=== PATIENT | female | born 1970 | race Caucasian/White ===

== ENCOUNTER 2025-05-13 16:25 | Emergency (ER) | payer OTHER, SELFPAY ==
--- NOTE | ~2025-05-13 | CT_ITS ---
EXAMINATION: CT cervical spine wo con DATE: 05/13/2025 21:46 INDICATION: frequent falls TECHNIQUE: Computed tomography (CT) of the cervical spine was performed without intravenous contrast. Automated exposure control and iterative reconstruction technique were employed. The dose-length pro duct was 622.78 mGy-cm. COMPARISON: None. FINDINGS: Vertebral Body Alignment: Minimal anterolisthesis at C4-5. Reversed lordosis as can occur with positi oning or muscle spasm. Craniocervical and atlantoaxial alignment: Mild degenerative change. Alignment intact. Osseous structures/fracture: Focal 8 mm ovoid lytic lesion in the left posterior aspect of the T4 dell tebral body. No evidence of acute fracture. Cervical soft tissues: The paraspinal soft tissues planes are maintained. Degenerative changes: Mild degenerative changes, without severe neural foraminal or central canal franki rowing. IMPRESSION: No acute fracture or traumatic malalignment in the cervical spine. Focal 8 mm lytic lesion in T4, correlate for history of multiple myeloma or metastatic disease. Consi shital bone scanning. Reviewed, dictated and finalized at location K. IMPRESSION: No acute fracture or traumatic malalignment in the cervical spine. Focal 8 mm lytic lesion in T4, correlate for history of multiple myeloma or met astatic disease. Consider bone scanning.
--- NOTE | ~2025-05-13 | CT_ITS ---
EXAMINATION: CT brain wo con DATE: 05/13/2025 21:47 INDICATION: frequent falls . TECHNIQUE: Computed tomography (CT) of the head was performed without intravenous contrast. The mA wa s adjusted according to patient size. Iterative reconstruction technique was employed. The dose-lengt h product was 622.78 mGy-cm. COMPARISON: None. FINDINGS: No acute intracranial hemorrhage or extra-axial fluid collection. No hydrocephalus, mass, or herniation. No acute ischemic infarct. Unremarkable dural venous sinus attenuation. No acute osseous abnormality. Minimal right mastoid fluid, the remaining aerated spaces are clear. IMPRESSION: No acute intracranial process. Reviewed, dictated and finalized at location K.
[2025-05-13 16:27] VITALS: BP 110/88; PULSE 113; RESP 18; TEMP 36.6; O2SAT 96
[2025-05-13 20:14] VITALS: BP 96/65; PULSE 99; RESP 16; TEMP 36.9; O2SAT 95
[2025-05-13 22:04] LABS: Hematocrit 41.3 % (37.0-47.0); Hemoglobin 12.8 g/dL (12.0-15.0); Immature Granulocyte Percent A 0.4 % (0-0.5); Lymphocytes Absolute Auto 1.29 K/mm3 (0.9-3.2); Mean Corpuscular HGB Conc 31.0 g/dl (32-36); Mean Corpuscular Hemoglobin 29.1 pg (26-34); Mean Corpuscular Volume 93.9 fl (80-100); Nucleated Red Blood Cells Absolute Auto 0.000 K/mm3 (0.0-0.012); Nucleated Red Blood Cells Perc 0.0 % (0.0-0.2); Platelet Count Result 163 k/mm3 (150-375); Red Blood Count 4.40 M/mm3 (4.2-5.4); White Blood Count 6.9 K/mm3 (4.5-10.0)
[2025-05-13 22:24] LABS: Alanine Aminotransferase 26 U/L (6-35); Albumin Level 3.9 g/dL (3.5-5.1); Alkaline Phosphatase 94 U/L (38-126); Anion Gap 6 mmol/L (4-12); Aspartate Amino Transferase 51 U/L (14-36); Bilirubin,Total 0.6 mg/dL (0.2-1.3); Blood Urea Nitrogen 8 mg/dL (7-17); Calcium 9.0 mg/dL (8.4-10.2); Carbon Dioxide 30 mmol/L (22-30); Chloride 101 mmol/L (98-107); Estimated CRCL calculation 68 ml/min; Estimated Glomerular Filt Rate > 60; Glucose 93 mg/dL (65-110); Magnesium 2.2 mg/dL (1.6-2.3); Potassium 4.2 mmol/L (3.4-5.0); Sodium 137 mmol/L (137-145); Total Protein 7.1 g/dL (6.3-8.2)
--- OUTSIDE RECORDS SUMMARY | 2025-05-13 23:22 | XMS_ITS | Patient Health Record ---
Author Organization Formerly [facility] Address [address] [place] [address] Care Team Providers Care Electromechanical Equipment Assembler Name Role Phone Jono Long Primary Care Provider Darryn Pardo Unavailable [phone] Smooth Diamond Unavailable Khari Mo Unavailable [phone] Allergies No Known Allergies Results Component Value Reference Range Notes Glucose Fingerstick Reviewed date:05/12/2025 10:10:50 AM Interpretation: Performing Lab: Notes/Report: Result 102 70 - 120 mg/dL Breathalyzer Reviewed date:05/11/2025 11:12:52 AM Interpretation: Performing Lab: Notes/Report: MELVIN 0.000 14 Panel Urine Drug Screen Reviewed date:05/11/2025 11:14:42 AM Interpretation: Performing Lab: Notes/Report: THC pos SHAYY neg MOP (OPI) neg AMP neg MET neg BAR neg BZO neg MDMA neg MTD neg OXY neg PCP neg BUP pos TCA neg FTY neg 14 Panel Urine Drug Screen Reviewed date:04/28/2025 01:45:22 PM Interpretation: Performing Lab: Notes/Report: THC POS SHAYY neg MOP (OPI) neg AMP neg MET neg BAR neg BZO neg MDMA neg MTD neg OXY POS PCP neg BUP neg TCA neg FTY neg Reason For Referral No Information Medications Medication SIG (Take, Route, Frequency, Duration) Notes Start Date End Date Status Memantine HCl 10 MG 1 tablet Orally Once a day Active OLANZapine 10 MG 1 tablet Orally Once a day Active Eliquis 5 MG twice a day Orally Active Ondansetron HCl 4 MG 1 tablet Orally every 6 hours As needed for nausea 04/28/2025 Active Nuedexta 20-10 MG 1 capsule Orally daily Active Pregabalin 150 MG 1 capsule Orally 3 t imes a day Active Rosuvastatin Calcium 10 MG 1 tablet Oral ly Once a day Active Horatio Carbonate ER 450 MG 1 tablet at bedtime Orally Once a day Active Breo Ellipta 200-25 MCG/ACT 1 puff Inhal ation Once a day Active Baclofen 10 MG 1 tablet as needed Orally every 6 hours As needed for cramping 04/28/2025 Active Multi Vitamin - 1 tablet Orally Once a day; Duration: 30 days 05/11/2025 Active Nicotine Polacrilex 4 MG 1 lozenge as ne eded Mouth/Throat every 8 hrs 04/28/2025 Active Meclizine HCl 12.5 MG 1 tablet as needed Orally every 12 hrs 05/12/2025 Active Melatonin 5 MG 1 tablet at bedtime as needed Orally Once a day; Duration: 30 days 05/11/2025 Active traZODone HCl 100 MG 1 tablet at bedtime Orally Once a day 04/28/2025 Active hydrOXYzine Pamoate 25 MG 1-2 capsules O rally every 4 hours as needed for anxiety, agitation, or inability to sleep. Do not give within 4 hours of diphenhydramine.; Duration: 30 days 05/11/2025 Active Buprenorphine HCl-Naloxone HCl 4-1 MG 1 film under the tongue and allow to dissolve Sublingual 3 times a day 05/04/2025 Active Social History Tobacco Use: Social History Observation Description Date Details (start date - stop date) Never Smoker NA - NA PRAPARE Question Answer Notes Date Completed/Updated: 05/11/2025 What is your current housing situation? I have h ousing Are you worried about losing your housing? No What is the highest level of school that you have finished? 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 Check all that apply I do not have problems meeting my needs Has lack of transportation k ept you from medical appointments, meetings, work or from getting things needed for daily living? No How often do you see or talk to people that you care about and feel close to? (For example: talking to friends on the phone, visiting friends or family, going to latter day or club meetings) More than 5 times a week In the past year have you sp ent more than 2 nights in a row in a senior living, long-term, usp center, or juvenile correctional facility? No Are you a refugee? I choose not to answer this q uestion What country are you from? I choose not to answe r this question Do you feel physically and e motionally safe where you currently live? Yes In the past year, have you b een afraid of your partner or ex-partner? No PRAPARE Score: 3 Enabling Services Provided? Yes Please specify Case Management Asse ssment First Visit Tobacco Control (Standard) Question Answer Notes Tobacco use: Nonsmoker Problems Problem Type SNOMED Code ICD Code Onset Dates Problem Status W/U Status Risk Notes Problem Overweight (402034895) Over weight (E66.3) Active confirmed Problem Obesity (408795414) Obesity (BMI 30-39.9) (E66.9) Active confirmed Problem Fall (3759492) Fall (W19.XXXA) Active confirmed Problem Opioid use disorder (0542289138) Opioid use disorder (F11.99) Active confirmed Problem Tobacco user (206889520) Nicotine dependence with current use (F17.200) Active confirmed Problem Benign paroxysmal positional vertigo (854417916) Benign positional vertigo, bilateral (H81.13) Active confirmed Vital Signs Heart Rate 72 /min 05/12/2025 Layin/68 Standin/74 for 05/12/25 visit Temperature 98.7 degrees Fahrenheit 05/12/2025 Layi n/68 Standin/74 for 05/12/25 visit Respiratory Rate 18 /min 05/12/2025 Layin /68 Standin/74 for 05/12/25 visit Blood pressure diastolic 68 mm Hg 05/12/2025 Lay in/68 Standin/74 for 05/12/25 visit Oximetry 93 % 05/12/2025 Layin/68 Standin/74 for 05/12/25 visit Height 65 in 05/12/2025 Layin/68 Standin/74 for 05/12/25 visit Blood pressure systolic 120 mm Hg 05/12/2025 Layi n/68 Standin/74 for 05/12/25 visit Weight 201.0 lbs 05/12/2025 Layin/68 Standin/74 for 05/12/25 visit BMI 33.44 kg/m2 05/12/2025 Layin/68 Standin/74 for 05/12/25 visit Encounters Encounter Location Date Provider Diagnosis [facility] [address] [place] [address] 05/11/2025 Smooth Diamond [address] [place] [address] 04/28/2025 Jenia Heavens Opioid use disorder F11.99 ; Obesity (BMI 30-39.9) E66.9 and Nicotine dependence with current use F17.200 [address] [place] [address] 05/11/2025 Jenia Heavens Opioid use disorder F11.99 ; Obesity (BMI 30-39.9) E66.9 and Routine general medical examination at a health care facility Z00.00 [address] [place] [address] 05/12/2025 Khari Bauder Fall W19.XXXA ; Benign positional vertigo, bilateral H81.13 and Over weight E66.3 [address] [place] [address] 05/02/2025 Jenia Heavens Opioid use disorder F11.99 [address] [place] [address] 05/04/2025 Jenia Heavens Opioid use disorder F11.99 Assessments Encounter Date Diagnosis (ICD Code) Assessment Notes Treatment Notes Treatment Clinical Notes Section Notes 04/28/2025 Obesity (BMI 30-39.9) (ICD-10 - E66.9) 04/28/2025 Opioid use disorder (ICD-10 - F11.99) Client presented as new MAT client and thought she was being admitted to [facility], CLient unable to admit to [facility] today> VIsit type was changed to AWM Medication instructions given from 14:30pm to 15:10 pm Buprenorphine induction + Comfort medications Client was given verbal and written instructions on buprenorphine/nalox one as follows: Dose is _4 mg _mg placed under tongue and allow to dissolve. Do not swallow medication, as that makes it ineffective. Do not eat or drink until the film completely dissolves and do not brush teeth for at least one hour after the medication has dissolved. Provided SOWS assessment to assist in dosing decisions. Instructed client that the goal for the total dose is to be withdrawal and craving free. Home dose will be ___4 mg up to 4 times a day, based on improvement in symptoms. Do not stop taking the medication abruptly, as this may cause withdrawal symptoms. Call the office if you experience side effects that are serious and do not go away, such as headache, stomach pain, constipation, sleep disturbances, mouth irritation, blurred vision, or back pain. Store the medication at room temperature in a secure area so no one else can use it accidentally or on purpose. Know that your body's tolerance lowers if you have not used the substance even for a few days. The amount you once used will be too much for your body to handle and may cause overdose or . Keep nasal Narcan (naloxone) nearby and make sure a friend, family member, or other support person knows how to use Narcan in the event of an overdose. Do your best to stay hydrated prior to and during the withdrawal process, drinking a minimum of eight 8-ounce glasses of water per day, sipping water, not gulping. Use ice chips or freezer pops to help with hydration. The client was given verbal and written instructions on all comfort medications ordered as follows: Baclofen 10mg, take one tablet by mouth every 6 hours as needed for muscle cramping. Possible side effects include dizziness, weakness, confusion, headache, nausea, constipation, sleep difficulties, tiredness, and frequent urination. Contact the office if you experience side effects that are severe or do not go away. Zofran/ Ondansetron can be taken with or without food. . Follow your doctor's dosing instructions very carefully. Take the ondansetron regular tablet with a full glass of water. Get emergency medical help if you have signs of an allergic reaction: rash, hives; fever, chills, difficult breathing; swelling of your face, lips, tongue, or throat. Call your doctor at once if you have: severe constipation, stomachpain, or bloating; Remember, keep this and all other medicines out of the reach of children, never share your medicines with others, and use this medication only for the indication prescribed. Trazodone 100 mg, take one tablet by mouth at bedtime as needed for 10 days. Use is for difficulty sleeping. Be sure to allow 7-8 hours of sleep. Common side effects can be drowsiness, lightheadedness, nausea, diarrhea, constipation, nightmares, muscle pain, decreased sexual drive, stuffy nose, and tired/red/itchy eyes. All comfort medications can cause drowsiness. Do not drive or operate heavy machinery until you know how the medication affects you. Have a flatbed company driver until then. 05/02/2025 Opioid use disorder (ICD-10 - F11.99) 05/04/2025 Opioid use disorder (ICD-10 - F11.99) 05/11/2025 Obesity (BMI 30-39.9) (ICD-10 - E66.9) 05/11/2025 Opioid use disorder (ICD-10 - F11.99) 05/12/2025 Fall (ICD-10 - W19.XXXA) Educated the patient on taking it easy with exercising and overexerting herself while on the unit and at home. Educated her on changing positions slowly and to take her time. Educated her on seeking help if she loses concsiousness or hits her head. 05/12/2025 Benign positional vertigo, bilateral (ICD-10 - H81.13) Educated her on taking meclizine PRN for her dizziness and to not take it at the same time as hydroxyzine. Educated her that the medication can make her tired and to rest if she is feeling fatigued. Educated the patient on taking it easy with exercising and overexerting herself while on the unit and at home. Educated her on changing positions slowly and to take her time. Educated her on seeking help if she loses concsiousness or hits her head. 05/12/2025 Over weight (ICD-10 - E66.3) 05/11/2025 Routine general medical examination at a health care facility (ICD-10 - Z00.00) SUPR Programs: Based on an evaluation of [facility] Patient Placement Criteria, a recommendation for placement in Level III treatment is indicated and approved. Confirmation of diagnosis is documented in the initial treatment plan.Admit to the Mental Health/Crisis Residential Unit and initiate standing/protocol orders: The following PRN medications may be self-administered by patients under the supervision of approved staff or administered by nursing staff: Ibuprofen 200mg, 2-4 tablets by mouth (with food) every 6 hours as needed for pain (unless on lithium). (NOTE: Ibuprofen and acetaminophen may be given together, but alternating is recommended for continuous pain relief. Guaifenesin 400 mg, 1 tablet by mouth every four hours as needed for cough and chest congestion (take with large glass of water). Loratadine 10 mg, 1 tablet by mouth daily as needed for allergies, watery itchy eyes, or sinus drainage. Throat Lozenges, up to 4 tablets by mouth every three to four hours as needed for sore throat. Antacid tablets, 1-2 tablets by mouth every one to two hours as needed for indigestion or heart burn. If the client prefers liquid, could use: Liquid Antacid : 1 ounce by mouth up to four times daily as needed for indigestion or heartburn Omeprazole 20mg, 1 capsule by mouth once daily for 14 days for frequent heartburn (frequent heartburn is more than 2 episodes per week). Do not exceed 14 days. Do not give to client already taking a proton-pump inhibitor: esomeprazole (Nexium), lansoprazole (Prevacid), pantoprazole (Protonix), rabeprazole (Aciphex), dexlansoprazole (Dexilant) Zofran ODT disintegrating (under the tongue) 4 mg, 1-2 tablets every 8 hours as needed for nausea/vomiting. Milk of Magnesia (MOM): 1 ounce (30 milliliters) by mouth every day as needed for constipation. OR Miralax: Stir and fully dissolve 17 grams (1 packet or 1 capful to measured line) in any 4 to 8 ounces of beverage then drink once daily for constipation. Do not use for more than 7 days. OR Docusate 100 mg, 1 capsule twice daily as needed for constipation Hydrocortisone 1% Cream, apply topically (to the skin) to the affected area up to three times daily as needed for itching or inflammation (avoid eyes and genitals). 2% Antifungal Cream, apply topically (to the skin) as directed as needed to affected areas for athlete's foot or jock itch. Triple Antibiotic Ointment, apply topically (to the skin) up to three times daily as needed for minor cuts and scrapes. Carmex or Chapstick, apply topically (to the skin) as needed for chapped lips and skin. Orajel, apply to affected areas as needed for mouth or tooth pain. Lubricating Eye Drops, instill 1-2 drops to the affected eye(s) as needed for dry/irritated eye(s). Hemorrhoid medications, apply to affected area according to directions as needed for hemorrhoid discomfort and itch. Nix (Permethrin 1%) cream 2 ounces, apply topically (to the skin) as directed as needed for head lice. Sunscreen 30 SPF, Apply to exposed skin prior to exposure to sun. The following PRN medications must be approved by nursing staff before self-administration by patients: Diphenhydramine 25 mg, 2 tablets by mouth every 4 hours as needed for allergic reaction or itchy rash. Caution: Do not use hydroxyzine within 4 hours of diphenhydramine and vice versa. Loperamide 2 mg capsules, may give two capsules by mouth for the initial dose, followed by one capsule up to 3 times a day as needed for diarrhea. Acetaminophen 500 mg, 1 - 2 tablets by mouth every six hours as needed for pain. (NOTE: Ibuprofen and acetaminophen may be given together, but alternating is recommended for continuous pain relief). Oxygen-May administer oxygen 2L/min via nasal cannula if O2 saturation is less than 92%, AND client complains of shortness of breath. Target O2 saturation is 94-98%. Caution: Remember too much oxygen can be detrimental to a client with COPD. Oxygen is a drug and should be delivered by trained staff only. Nurses may remove superficial splinters and sutures from skin lacerations. May apply gauze or bandages to any weeping wounds. Contact nursing if there is pus, a foul odor, increased pain/redness/swelli ng, or if soaking through bandages. 04/28/2025 Nicotine dependence with current use (ICD-10 - F17.200) 05/11/2025 Other Clinician met w ith client to assess needs for residential services. Clinician gathered information regarding historical presentation of mental health and substance use symptoms including withdrawal, HIV Risk assessment, psychiatric hospitalization history and presenting concern. Clinician conducted PHQ9 and CSSRS assessments as well as social drivers of health screening for the purposes of identifying additional service needs. Engaged individual in suicide risk assessment. Provided risk based intervention to ensure saftey and linkage to ongoing services Plan Of Treatment Future Test Test Name Order Date CBC With Differential/Platelet* 05/11/20 CMP 14 Comprehensive Metabolic Panel* QuantiFERON-TB Gold Plus (120742) 2024 12 Panel Urine Drug Screen 05/11/2025 Insurance Providers Payer Name Payer Address Payer Phone Subscriber Number Group Number Insured Name Patient Relationship to Insured Coverage Start Date Coverage End Date [employer] MMAI [address] [place] [address] [id number] Debora Murphy Self - patient is the insured 5 Medical (General) History Medical History History ICD Code Asthma High cholesterol Schizophrenia Reflex sympathetic distrophy Scoliosis Surgical History Surgery Date(Month/Year) Hospitalization History Reason Date(Month/Year)
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
--- OUTSIDE RECORDS SUMMARY | 2025-05-13 23:23 | XMS_ITS | Encounter Summary ---
Author Organization [facility] Address [address] [place] [address] Care Team Providers Care Public Speaking Teacher Name Role Phone Mandi Esqueda DO Primary Care Provider [phone] Encounter Details Date Type Department Care Team (Late st Contact Info) Description 05/09/2022 Orders Only [facility] [address] [facility] [place] [address] System, Provider Not In, [address] [place] [address] Social History Tobacco Use Types Packs/Day Years Used Date Smoking Tobacco: Former Cigarettes 1 2012 Smokeless Tobacco: Never Alcohol Use Standard Drinks/Week Comments No 0 (1 standard drink = 0.6 oz pur e alcohol) Comments Unknown Sex and Gender Information Value Date Recorded Sex Assigned at Not on file Legal Sex Female 6:27 PM CDT Gender Identity Not on file Sexual Orientation Not on file documented as of this encounter Plan of Treatment Not on file documented as of this encounter Procedures Procedure Name Priority Date/Time Associated Diagnosis Comments OUTSIDE IMAGES 05/09/2022 10:07 AM CDT documented in this encounter Results * Outside Images (05/09/2022 10:07 AM CDT) Anatomical Region Laterality Modality N/A Radiographic Monse ging 05/09/2022 10:0 7 AM CDT Narrative 05/09/2022 10:07 AM CDT Image acquired from external facility for exam: CT ABDOMEN PELVIS W/WO Procedure Note System, Provider Not In, - 08/26/2022 Image acquired from external facility for exam: CT ABDOMEN PELVIS W/WO us Provider Not In System MD [facility] Final Result documented in this encounter Visit Diagnoses Not on filedocumented in this encounter Care Teams Public Speaking Teacher Relationship Specialty Start Date End Date Mandi Esqueda DO [address] [place] [address] PCP - General 07/06/14 documented as of this encounter
--- OUTSIDE RECORDS SUMMARY | 2025-05-13 23:23 | XMS_ITS | Clinical Summary ---
Author Organization [facility] Address [address] [place] [address] Care Team Providers Care Drill Operator Name Role Phone Mandi Esqueda DO Primary Care Provider [phone] Allergies No known active allergies Medications albuterol sulfate HFA 108 (90 Base) MCG/ACT inhaler 08/09/2022 Act larry ASPIRIN LOW DOSE 81 MG tablet 1 tablet daily. 06/26/2022 Active BREO ELLIPTA 200-25 MCG/ACT inhaler 08/09/2022 Active furosemide (LASIX) 20 MG tablet 1 tablet daily. 05/03/2022 Active lithium CR (LITHOBID) 450 MG tablet 1 tablet daily. 10/01/2022 Active nicotine (NICODERM CQ) 7 MG/24HR 09/11/2022 Active OLANZapine (ZYPREXA) 10 MG tablet 1 tablet daily. 10/07/2022 Active oxyCODONE-aceta minophen (PERCOCET) 10-325 MG tablet 10/25/2022 Active potassium chloride CR (K-TAB) 10 MEQ Tab CR tablet 1 tablet daily. 05/03/2022 Active propranolol (INDERAL) 20 MG tablet 1 tablet 3 (three) times daily. 07/24/2022 Active ELIQUIS 5 MG tablet 1 tablet 2 (two) times daily. 10/02/2022 Active pregabalin (LYRICA) 150 MG capsule Take 1 tablet by mouth 2 (two) times daily. Active ubrogepant (UBRELVY) 100 MG tablet Take 100 mg by mouth 2 (two) times daily as needed for Migraine. 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 Gender Identity Not on file Sexual Orientation Not on file Plan of Treatment Health Maintenance Due Date Last Done Comments Cervical Cancer Screening Pa p Smear (Age 30 to 64) Every 3 Years 1972 Colorectal Cancer Screening Colonoscopy (10 Years) 1972 Annual Physical 12/31/1974 Hepatitis C 12/31/1989 DTaP, Tdap and Td Vaccines ( 1 - Tdap) 12/31/1990 Hepatitis B Vaccines (1 of 3 - 19+ 3-dose series) 12/31/1990 Cervical Cancer Screening Pa p with HPV Testing (Age 30 to 64) Every 5 Years 12/31/2001 Cervical Cancer Screening with HPV 12/31/2001 Mammogram Screening 2012 Pneumococcal Vaccine: 50+ Ye ars (1 of 1 - PCV) 12/31/2021 Zoster Vaccines (1 of 2) 12/31/2021 COVID-19 Vaccine (1 - 2023-2 5 season) 2024 Meningococcal B Vaccine Aged Out No l onger eligible based on patient's age to complete this topic Meningococcal Vaccine Aged Out No allie kurt eligible based on patient's age to complete this topic RSV Immunizations Under 20 Months Aged Out No longer eligible based on patient's age to complete this topic Insurance MEDICAID MEDICARE Care Teams Drill Operator Relationship Specialty Start Date End Date Mandi Esqueda DO [address] [place] [address] PCP - General FAMILY PRACTICE 12/10/17
--- OUTSIDE RECORDS SUMMARY | 2025-05-13 23:23 | XMS_ITS | Clinical Summary ---
Author Organization [facility] Address [address] [place] [address] Care Team Providers Care Home Maker Name Role Phone Mandi Esqueda DO Primary Care Provider [phone] Allergies No known active allergies Medications apixaban (ELIQUIS) 5 mg tablet Eliquis 5 mg tablet Active oxyCODONE-aceta minophen (PERCOCET) 5-325 mg per tablet oxycodone-acetam inophen 5 mg-325 mg tablet Active OLANZapine (ZyPREXA) 5 mg tablet olanzapine 5 mg tablet Active propranoloL (INDERAL) 20 mg tablet propranolol 20 mg tablet Active albuterol HFA 90 mcg/actuation inhaler Ventolin HFA 90 mcg/actuation aerosol inhaler INHALE 2 PUFFS BY MOUTH EVERY 4 HOURS NEEDED Active potassium chloride (KLOR-CON) 10 mEq CR tablet 2 Active pregabalin (LYRICA) 100 mg capsule Take 150 mg by mouth 4 Active lithium (ESKALITH) 450 mg CR tablet lithium carbonate ER 450 mg tablet,extended release Active dextromethorpha n-quinidine (Nuedexta) 20-10 mg capsule Active ubrogepant (Ubrelvy) 100 mg tablet 1 Active apixaban (ELIQUIS) 5 mg tablet Take 5 mg by mouth 2 (two) times a day Active fluticasone furoate-vilante roL (BREO) 200-25 mcg/dose blister with device Breo Ellipta 200 mcg-25 mcg/dose powder for inhalation INHALE 1 PUFF BY MOUTH DAILY Active lurasidone (LATUDA) 40 mg tablet Latuda 40 mg tablet TAKE 1 TABLET BY MOUTH EVERY DAY Active oxyCODONE (ROXICODONE) 5 mg immediate release tablet Take 10 mg by mouth daily Active sertraline (ZOLOFT) 100 mg tablet Take 1 tablet (100 mg total) by mouth daily Active methylPREDNISol one (MEDROL) 4 mg tabletIndicatio ns:OME (otitis media with effusion), bilateral follow package directions 21 tablet 3 Active Additional Information Patient not taking.Reported on 01/28/2023 fluticasone propionate (FLONASE) 50 mcg/actuation nasal sprayIndication s:OME (otitis media with effusion), bilateral fluticasone propionate 50 mcg/actuation nasal spray,suspension USE 2 SPRAYS IN EACH NOSTRIL 16 g 3 3 Active ramelteon (ROZEREM) 8 mg tablet 3 Active rosuvastatin (CRESTOR) 10 mg tablet 3 Active OLANZapine (ZyPREXA) 10 mg tablet 3 Active pregabalin (LYRICA) 150 mg capsule 3 Active methylPREDNISol one (MEDROL) 4 mg tabletIndicatio ns:Acute maxillary sinusitis, recurrence not specified follow package directions 21 tablet 3 Active Active Problems Problem Noted Date Diagnosed Date Acute maxillary sinusitis 02/26/2023 Assessment & Plan (02/26/2023 11:30 AM CDT): Nasal endoscopy did not reveal any CHEF & OWNER or ETO mass or lesion. She did have mucoid drainage in CHEF & OWNER and inflammation of both ETOs. Continue flonase augmentin and steroid taper Follow up in 4-6 wks OME (otitis media with effusion), bilateral 01/2023 Assessment & Plan (02/26/2023 11:26 AM CDT): Continue flonase and popping ears Follow up in 4-6 wks Assessment & Plan (01/28/2023 1:50 PM CDT): Recommend daily flonase, pop ears Will discuss nasopharyngoscopy and possible tubes at follow up Profound hearing loss of both ears 01/28/2023 Assessment & Plan (02/26/2023 11:26 AM CDT): Medical clearance for hearing aids given to go to [place]. Referral pending to national dedicated truck driver because [facility] does not accept insurance. I messaged Pradeep in referrals regarding updating the referral to a different facility. Assessment & Plan (01/28/2023 1:51 PM CDT): Profound hearing loss with poor word recognition, Referral to otology for CI evaluation Anxiety 06/13/2022 Asthma 06/13/2022 Chronic post-traumatic stress disorder Depressive disorder 06/13/2022 Disability of walking 06/13/2022 Edema 06/13/2022 Insomnia 06/13/2022 Menorrhagia 06/13/2022 Migraine 06/13/2022 Deep venous thrombosis of lower extremity 2021 Obstructive sleep apnea syndrome 06/13/2022 Rosacea 06/13/2022 Pseudobulbar affect 09/12/2017 Encounters Date Type Department Care Team Description 03/31/2025 Telephone [facility] [employer], [facility] [address] [place] [address] Patrick Cosby MD from Last 3 Months Social History Tobacco Use Types Packs/Day Years Used Date Smoking Tobacco: Former Cigarettes S tarted: 05/30/2022 Smokeless Tobacco: Never Tobacco Cessation:Counseling Given: Not Answered Comments No Sex and Gender Information Value Date Recorded Sex Assigned at Not on file Legal Sex Female 9:25 PM CDT Gender Identity Not on file Sexual Orientation Not on file Last Filed Vital Signs Vital Sign Reading Time Taken Comments Blood Pressure 124/74 02/26/2023 9:54 AM CDT Pulse 86 02/26/2023 9:54 AM CDT Temperature 36.2 C (97.1 F) 02/26/2023 9:54 AM CDT Respiratory Rate 18 02/26/2023 9:54 AM CDT Oxygen Saturation 95% 02/26/2023 9:54 AM CDT Inhaled Oxygen Concentration - - Weight 107 kg (235 lb 1.6 oz) 02/26/2023 9:54 AM CDT Height 165.1 cm (5' 5) 02/26/2023 9:54 AM CDT Body Mass Index 39.12 02/26/2023 9:54 AM CDT Plan of Treatment Health Maintenance Due Date Last Done Comments CT Colonography 1972 Colonoscopy 1972 Colorectal Cancer Screening 1972 FIT-DNA 1972 FIT 1972 FOBT 1972 Pap Smear 1972 Sigmoidoscopy 1972 MMR Vaccines (1 of 1 - Standard series) 1972 Varicella Vaccines (1 of 2 - 13+ 2-dose series) 12/31/1984 Hepatitis B Vaccines (1 of 3 - 19+ 3-dose series) 12/31/1990 AMB Pneumococcal 50+ yrs (2 of 2 - PCV) 08/28/2019 08/28/2018 Mammogram 05/23/2023 05/23/2022, 05/17/2022 COVID-19 Vaccine ( - season) 2024 08/13/2021, 02/14/2021, 01/17/2021 Influenza Vaccine (#1) 2025 , 08/13/2021, 08/21/2020, Additional history exists DTaP,Tdap,and Td Vaccines (3 - Td or Tdap) 06/15/2031 06/15/2021, 01/05/2012 RSV Vaccines and 60 Years or Older (1 - 1-dose 75+ series) 12/31/2046 AMB Pneumococcal 0-49 yrs Discontinued 08/28/2018 Zoster Series Vaccines Completed 09/07/2022, 2021 HIB Vaccines Aged Out No longer eligi ble based on patient's age to complete this topic HPV Vaccines Aged Out No longer eligi ble based on patient's age to complete this topic Hepatitis A Vaccines Aged Out No long er eligible based on patient's age to complete this topic IPV Vaccines Aged Out No longer eligi ble based on patient's age to complete this topic Meningococcal ACWY Vaccine Aged Out N o longer eligible based on patient's age to complete this topic Meningococcal B Vaccine Aged Out No l onger eligible based on patient's age to complete this topic RSV Vaccines <20 Months Aged Out No l onger eligible based on patient's age to complete this topic Procedures Procedure Name Priority Date/Time Associated Diagnosis Comments BI DIAGNOSTIC BILATERAL Routine 05/23/2022 1:07 PM CDT Abnormal mammogram from Last 3 Months or Most Recently Relevant to Health Maintenance Results * (ABNORMAL) Bilateral digital diagnostic mammogram (05/23/2022 1:07 PM CDT) Anatomical Region Laterality Modality Breast Bilateral Mammography Narrative 05/23/2022 1:17 PM CDT EXAMINATION(S) PERFORMED Patient is seen for Bilateral digital diagnostic mammogram. Study was evaluated with a computer aided detection (CAD) system and performed with 2D/3D mammography. INDICATIONS Debora Murphy is a 52 y.o. female and is being seen for Abnormal mammogram. No known family history of breast cancer. COMPARISON TO PREVIOUS EXAMINATION(S) Compared to: 05/17/2022 Bilateral digital screening mammogram, 11/25/2016 Breast Img screening bilateral, and 02/22/2015 Breast Img screening bilateral FINDINGS The breasts have scattered areas of fibroglandular density. Right breast: There is a persistent mass in the right breast, 10 to 11 o'clock position middle depth. This is best seen on the CC spot view. This mass measures 0.6 x 0.5 cm. Left breast: There is a persistent lobulated mass in the left breast, 6 o'clock position measuring up to 0.7 x 0.6 cm. Questionable fatty hilum. IMPRESSION Left breast assessment: Incomplete: Needs Additional Imaging Evaluation. Ultrasound evaluation of both breasts as described. Overall BI-RADS category: 0 - Incomplete: Needs Additional Imaging Evaluation us Ketan Mason PA-C IMG BI PROCEDURES Final Resul t from Last 3 Months or Most Recently Relevant to Health Maintenance Insurance [employer]) Care Teams Home Maker Relationship Specialty Start Date End Date Mandi Esqueda DO [address] [place] [phone] PCP - General Osteopathic Medicine 12/08/17
--- OUTSIDE RECORDS SUMMARY | 2025-05-13 23:23 | XMS_ITS | Clinical Summary ---
Author Organization [facility] Address [address] [place] [address] Care Team Providers Care Chemical Processing Equipment Repairer Name Role Phone Mandi Esqueda Primary Care Provider [phone] Allergies No known active allergies Medications busPIRone (BUSPAR) 15 MG tablet Take 15 mg by mouth 3 (three) times a day. Active oxyCODONE (ROXICODONE) 5 MG immediate release (IR) tablet Take 5 mg by mouth every 6 (six) hours as needed for breakthrough pain. Active propranolol (INDERAL) 20 MG tablet Take 20 mg by mouth 3 (three) times a day. Active meloxicam (MOBIC) 15 MG tablet Take 15 mg by mouth daily. Active SUMAtriptan succinate (IMITREX STATDOSE PEN) 4 mg/0.5 mL pen injector Inject under the skin. Active fluticasone (FLONASE) 50 mcg/actuation nasal spray Administer 1 spray into each nostril daily. Active albuterol (PROVENTIL HFA, VENTOLIN HFA) 90 mcg/puff inhaler Inhale 2 puffs every 6 (six) hours as needed for wheezing. Active pregabalin (LYRICA) 150 MG capsule Take 150 mg by mouth 2 (two) times a day. Active sertraline (ZOLOFT) 100 MG tablet Take 100 mg by mouth daily. Active fluticasone-lina anterol 200-25 mcg/dose blister with device Inhale daily. Active lurasidone (LATUDA) 20 mg tablet Take 20 mg by mouth daily. Active apixaban (ELIQUIS) 5 mg tablet Take 5 mg by mouth 2 (two) times a day. Active dextromethorpha n-quinidine (NUEDEXTA) 20-10 mg capsule Take 1 capsule by mouth every 12 (twelve) hours. Active Family History Medical History Relation Name Comments No Known Problems Brother No Known Problems Father Heart attack Mother Seizures Mother Stroke Mother Diabetes Sister Relation Name Status Comments Brother Alive Father unknown Mother (Age 67) Sister Alive Social History Tobacco Use Types Packs/Day Years Used Date Smoking Tobacco: Former Cigarettes 1 15 1 8 - 2012 Smokeless Tobacco: Never Alcohol Use Standard Drinks/Week Comments No 0 (1 standard drink = 0.6 oz pur e alcohol) Comments Unknown Sex and Gender Information Value Date Recorded Sex Assigned at Not on file Legal Sex Female 6:27 PM CDT Gender Identity Not on file Sexual Orientation Not on file Last Filed Vital Signs Vital Sign Reading Time Taken Comments Blood Pressure - - Pulse - - Temperature - - Respiratory Rate - - Oxygen Saturation - - Inhaled Oxygen Concentration - - Weight - - Height 165.1 cm (5' 5) 04/08/2018 9:06 AM CDT Body Mass Index - - Plan of Treatment Health Maintenance Due Date Last Done Comments Medicare Annual Wellness 1972 Hepatitis B Vaccines (1 of 3 - 19+ 3-dose series) 12/31/1990 Pap Smear 12/31/1992 Mammogram 2012 Colonoscopy 12/31/2016 Pneumococcal Vaccine: 50+ Years (2 of 2 - PCV) 12/31/2021 08/28/2018 Shingrix (ZOSTER RECOMBINANT) (2 of 2) 03/08/2022 01/11/2022 Influenza Vaccination (#1) 05/27/202508/09, 08/13/2021, 08/21/2020, Additional history exists Td, Tdap Vaccines Adult 06/15/2031 06/15/2021, 01/04 HIB Vaccines Aged Out No longer eligi [...] patient's age to complete this topic Meningococcal Vaccines Aged Out No lo nger eligible based on patient's age to complete this topic RSV Mab Nirsevimab (Beyfortus) <20 months Aged Out No longer eligibl e based on patient's age to complete this topic Rotavirus Vaccines Aged Out No longer eligible based on patient's age to complete this topic Insurance [facility] [place] [id number] MEDICARE [facility] MEDICARE Care Teams Chemical Processing Equipment Repairer Relationship Specialty Start Date End Date Mandi Esqueda DO [address] [place] [address] PCP - General 07/06/14
--- OUTSIDE RECORDS SUMMARY | 2025-05-13 23:23 | XMS_ITS | Encounter Summary ---
Author Organization [facility] Address [address] [place] [address] Care Team Providers Care Painter Helper Name Role Phone Mandi Esqueda DO Primary Care Provider [phone] Encounter Details Date Type Department Care Team (Late st Contact Info) Description 05/13/2022 Orders Only [facility] Radiology [address] [place] [address] System, Provider Not In, [address] [place] [address] Social History Tobacco Use Types Packs/Day Years [...] Priority Date/Time Associated Diagnosis Comments OUTSIDE IMAGES 05/13/2022 7:59 AM CDT documented in this encounter Results * Outside Images (05/13/2022 7:59 AM CDT) Anatomical Region Laterality Modality N/A Radiographic Monse ging 05/13/2022 7:59 AM CDT Narrative 05/13/2022 7:59 AM CDT Image acquired from external facility for exam: US ABDOMEN LIMITED Procedure Note System, Provider Not In, - 08/26/2022 Image acquired from external facility for exam: US ABDOMEN LIMITED us Provider Not In System MD [facility] Final Result documented in this encounter Visit Diagnoses Not on filedocumented in this encounter Care Teams Painter Helper Relationship Specialty Start Date End Date Mandi Esqueda DO [address] [place] [address] PCP - General 07/06/14 documented as of this encounter
--- OUTSIDE RECORDS SUMMARY | 2025-05-13 23:23 | XMS_ITS | Encounter Summary ---
Author Organization [facility] Address [address] [place] [address] Care Team Providers Care Svp Marketing Name Role Phone Mandi Esqueda DO Primary Care Provider [phone] Encounter Details Date Type Department Care Team (Late st Contact Info) Description 06/26/2022 Orders Only [facility] Radiology [address] [place] [address] System, Provider Not In, [address] [place] [address] Social History Tobacco Use Types Packs/Day Years [...] Priority Date/Time Associated Diagnosis Comments OUTSIDE IMAGES 06/26/2022 8:55 AM CDT documented in this encounter Results * Outside Images (06/26/2022 8:55 AM CDT) Anatomical Region Laterality Modality N/A Radiographic Monse ging 06/26/2022 8:55 AM CDT Narrative 06/26/2022 8:55 AM CDT Image acquired from external facility for exam: PET Procedure Note System, Provider Not In, - 08/26/2022 Image acquired from external facility for exam: PET us Provider Not In System MD [facility] Final Result documented in this encounter Visit Diagnoses Not on filedocumented in this encounter Care Teams Svp Marketing Relationship Specialty Start Date End Date Mandi Esqueda DO [address] [place] [address] PCP - General 07/06/14 documented as of this encounter
--- OUTSIDE RECORDS SUMMARY | 2025-05-13 23:23 | XMS_ITS | Encounter Summary ---
Author Organization [facility] Address [address] [place] [address] Care Team Providers Care Program Supervisor Name Role Phone Mandi Esqueda DO Primary Care Provider [phone] Encounter Details Date Type Department Care Team ([facility] Contact Info) Description 06/27/2022 Orders Only [facility] [place] [address] [place] [phone] Emilia Burks, RN Social History Tobacco Use Types Packs/Day Years Used Date Smoking Tobacco: Former Cigarettes S tarted: 05/30/2022 Smokeless Tobacco: Never Comments No Sex and Gender Information Value Date Recorded Sex Assigned at Not on file Legal Sex Female 9:25 PM CDT Gender Identity Not on file Sexual Orientation Not on file documented as of this encounter Plan of Treatment Not on file documented as of this encounter Visit Diagnoses Not on filedocumented in this encounter Care Teams Program Supervisor Relationship Specialty Start Date End Date Mandi Esqueda DO [address] [place] [phone] PCP - General Osteopathic Medicine 12/08/17 documented as of this encounter
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
--- OUTSIDE RECORDS SUMMARY | 2025-05-13 23:23 | XMS_ITS | Data Portability ---
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 [address] 03/11/2024 11:39:49 03/11/2024 12:12:11 Follow-up orthopedic assessment [id number] Z47.89 1 week status post ( 03/04/2024 ):1. Bunionecto my with modified Lapidus arthrodesi s left foot2. Hammertoe operation 2nd toe left foot Postop dressing reapplied Follow-up: 1 week [id number] Ricky Olivares DPM [facility] [place] [address] [place] [address] 03/18/2024 11:08:00 03/18/2024 13:04:25 Follow-up orthopedic assessment [id number] Z47.89 2 weeks status post ( 03/04/2024 ):1. Bunionecto my with modified Lapidus arthrodesi s left foot2. Hammertoe operation 2nd toe left foot Suture removal as notedPosto p dressing reapplied [id number] Ricky Olivares DPM [facility] [address] [place] [address] 04/01/2024 10:43:59 04/01/2024 13:44:33 Follow-up orthopedic assessment [id number] Z47.89 4 weeks status post ( 03/04/2024 ):1. Bunionecto my with modified Lapidus arthrodesi s left foot2. Hammertoe operation 2nd toe left foot Postop dressing reapplied [id number] Ricky Olivares DPM [facility] [address] [place] [address] 04/08/2024 09:21:05 04/08/2024 10:18:22 Follow-up orthopedic assessment [id number] Z47.89 5 weeks status post ( 03/04/2024 ):1. Bunionecto my with modified Lapidus arthrodesi s left foot2. Hammertoe operation 2nd toe left foot K-wire was removed from the 2nd toe without issue. Slight bleeding was stopped with elevation and compressio n. Mupirocin and Band-Aid applied. I gave her a small sample tube with mupirocin. She is to change this daily until Friday and should not get her foot wet until the hole is closed. She was also shown how to use a Band-Aid to help de rotate the 2nd toe as the swelling resolves. She was sized, fitted, and dispensed a bunion splint. She is to wear this 19/05 to help stabilize the joint. All walking and weight-valerie ring should be in the cast boot at all times Final x-rays at the next visit. Follow-up: 2 weeks [id number] Ricky Olivares DPM [facility] [address] [place] [address] 04/22/2024 13:38:05 04/22/2024 15:49:20 Follow-up orthopedic assessment [id number] Z47.89 7 weeks status post ( 03/04/2024 ):1. Bunionecto my with modified Lapidus arthrodesi s left foot2. Hammertoe operation 2nd toe left foot She may transition to an athletic shoe. I gave her foam toe separators to wear with her shoe during the day, and she has to continue the bunion splint at night. She is to keep her activity level on the lower side and not be on her foot too much until after we see her back. Follow-up: One month Health Concerns Section Related Observation LastModified by Organization Detai ls LastModified Time None Recorded Concern Status LastModified by Organization Details LastModified Time None Recorded Advance Directives Directive N: Payers Insurance Date Sequence Insurance Name Policy Number Policy Zavala Covered Member ID Zavala Member ID Guarantor Name 05/27/2024 1 [employer] (MEDICARE REPLACEMENT/ ADVANTAGE - HMO) Debora Kendall [id number] Debora Kendall 01/22/2024 2 [employer] Debora Kendall [id number] Debora Kendall Notes Date Note Type Note Provider Name and Address Organization Details Recorded Time 03/11/2024 text/html Date of surgery: 03/04/2024 Patient comes in for her 1st scheduled postop visit on the left foot. Slipped and fell the day of her surgery when her crutch landed on a piece of grass and made her slip and fall, landing on her left side, sustaining a hematoma on her left arm and her left gluteal area. relates her left gluteal area is extremely sore from the hematoma. She has been fully weight-bearing on her foot in the boot, because she could not afford a knee scooter and was concerned about using crutches anymore. She relates her foot has not really hurt at all. She took an extra dose of her pain medication just the 1st couple of days. She is taking the antibiotics. [place], [address], [facility] 03/11/2024 12:08:22 03/18/2024 text/html Date of surgery: 03/04/2024 Two weeks postop left foot surgery. Here for suture removal. States that she has not been on her foot much at all, trying to stay off it and keep it elevated. She does walk to go to the bathroom and things of that nature. She does have some pain on the [place], [address], [facility] 03/18/2024 12:53:39 04/01/2024 text/html Date of surgery: 03/04/2024 4 weeks postop left foot surgery. Doing fine. No pain or problems. No calf pain. States she is not on her foot much. Ricky Olivares DPM [address] [place], [address], [facility] 04/01/2024 11:12:05 04/08/2024 text/html Date of surgery: 03/04/2024 5 weeks postop left foot surgery. doing fine. Not having any pain or problems. States she has been staying off her foot. Ricky Olivares DPM [address] [place], [address], [facility] 04/08/2024 10:16:24 04/22/2024 text/html Date of surgery: 03/04/2024 7 weeks postop left foot surgery. States she is doing fine. Not having any pain or problems. Still gets a little swelling. Has really tried to stay off her foot. Has not been on it much at all. Relates when she pulled the bunion splint off the other morning, the scab over the incision came off with it. Ricky Olivares DPM [address] [place], [address], [facility] 04/22/2024 14:37:03 OBGyn Episode No OBEpisode recorded.
--- OUTSIDE RECORDS SUMMARY | 2025-05-13 23:23 | XMS_ITS | Data Portability ---
Author Organization [facility], [facility] Address [address] [place] [address] Assessment No assessment recorded. Plan of Treatment Reminders Order Date Submit Date Provider Last Modified By Organization Details Last Modified Time Details Appointments None recorded. Lab unlisted lab - testt+test [id number] 2018 019 [facility], [address] [place] [address], [address], 9 00:06:39 TSH, ultra-sens itive, serum 2018 019 Wipit Eva, [address] [place] [address], [address], 9 06:37:31 17-hydroxy progestero ne, QN, serum 2018 019 [facility] Eva, [address] [place] [address], [address], 9 14:07:12 prolactin, serum 2018 019 [facility] Eva, [address] [place] [address], [address], 9 06:37:31 dhea-sulfa te, serum 2018 019 [facility], [address] [place] [address], [address], 9 06:37:30 CBC w/ auto diff 2018 019 [facility], [address] [place], [address], 9 06:37:30 unlisted lab - LH+FSH+est hyacinth 2018 019 Wipit Eva, [address] [place], [address], 9 21:06:33 Referral None recorded. Procedures None recorded. Surgeries None recorded. Imaging None recorded. Medication Orders None recorded. Patient TargetsNo targets recorded. Patient Instructions Encounter Date Encounter Id Patient Instructions Last Modified By Organization Details Last Modified Time 02/24/2019 [id number] body mass index: care instructions [email or web address] Not available 02/24/2019 15:33:40 learning about healthy weight [email or web address] Not available 02/24/2019 15:33:40 Screening, Brief Intervention, and Referral to Treatment* [email or web address] Not available 02/24/2019 15:33:40 Reason for Referral None Reported. Results Created Date Observation Date Name Description Value Unit Range Abnormal Flag Note LastModifiedBy Organization Detail LastModifiedTime 02/25/20 19 02/24/2019 pregn james test, urine test, urine Negati ve negati ve Not Available [facility] [place] [address] [place] [address], [address], 02/24/2019 17:07:46 02/25/2002/25/2019 CBC w/ auto diff WBC 6.9 x10e3 /uL 3.4-10 .8 Not Available [facility] [address] [place], [address], 02/25/2019 06:37:30 02/25/2002/25/2019 CBC w/ auto diff RBC 4.57 x10e6 /uL 3.77-5 .28 Not Available [facility] [address] [facility], [place], [address], 02/25/2019 06:37:30 02/25/2002/25/2019 CBC w/ auto diff hemoglobin 12.7 g/dL 11.1-1 5.9 Not Available [facility] [address] [facility] [place], [address], 02/25/2019 06:37:30 02/25/2002/25/2019 CBC w/ auto diff hematocrit 39.6 % 34.0-4 6.6 Not Available [facility] [address] [facility], [place], [address], 02/25/2019 06:37:30 02/25/2002/25/2019 CBC w/ auto diff MCV 87 fL 79-97 Not Available [facility] [address] [facility], [place], [address], 02/25/2019 06:37:30 02/25/2002/25/2019 CBC w/ auto diff MCH 27.8 pg 26.6-3 3.0 Not Available [facility] [address] [facility], [place], [address], 02/25/2019 06:37:30 02/25/2002/25/2019 CBC w/ auto diff MCHC 32.1 g/dL 31.5-3 5.7 Not Available [facility] [address] [facility], [place], [address], 02/25/2019 06:37:30 02/25/2002/25/2019 CBC w/ auto diff RDW 14.6 % 12.3-1 5.4 Not Available [facility] [address] [facility] [place], [address], 02/25/2019 06:37:30 02/25/2002/25/2019 CBC w/ auto diff platelets 213 x10e3 /uL 150-37 9 Not Available [facility] [address] [place], [address], 02/25/2019 06:37:30 02/25/2002/25/2019 CBC w/ auto diff neutrophils 58 % not estab. Not Available [facility] [address] [facility], [place], [address], 02/25/2019 06:37:30 02/25/2002/25/2019 CBC w/ auto diff lymphs 31 % not estab. Not Available [facility] [address] [facility], [place], [address], 02/25/2019 06:37:30 02/25/2002/25/2019 CBC w/ auto diff monocytes 6 % not estab. Not Available [facility] [address] [facility], [place], [address], 02/25/2019 06:37:30 02/25/2002/25/2019 CBC w/ auto diff eos 4 % not estab. Not Available [facility] [address] [facility], [place], [address], 02/25/2019 06:37:30 02/25/2002/25/2019 CBC w/ auto diff basos 1 % not estab. Not Available [facility] [address] [facility], [place], [address], 02/25/2019 06:37:30 02/25/2002/25/2019 CBC w/ auto diff immature cells NURSING PROJECT COORDINATOR Not Available [facility] [address] [facility], [place], [address], 02/25/2019 06:37:30 02/25/2002/25/2019 CBC w/ auto diff neutrophils (absolute) 3.9 x10e3 /uL 1.4-7. 0 Not Available [facility] [address] [facility], [place], [address], 02/25/2019 06:37:30 02/25/2002/25/2019 CBC w/ auto diff lymphs (absolute) 2.2 x10e3 /uL 0.7-3. 1 Not Available [facility] [address] [place], [address], 02/25/2019 06:37:30 02/25/2002/25/2019 CBC w/ auto diff monocytes(ab solute) 0.4 x10e3 /uL 0.1-0. 9 Not Available [facility] [address] [place], [address], 02/25/2019 06:37:30 02/25/2002/25/2019 CBC w/ auto diff eos (absolute) 0.3 x10e3 /uL 0.0-0. 4 Not Available [facility] [address] [place], [address], 02/25/2019 06:37:30 02/25/2002/25/2019 CBC w/ auto diff baso (absolute) 0.1 x10e3 /uL 0.0-0. 2 Not Available [facility] [address] [place], [address], 02/25/2019 06:37:30 02/25/2002/25/2019 CBC w/ auto diff immature granulocytes 0 % not estab. Not Available [facility] [address] [place], [address], 02/25/2019 06:37:30 02/25/2002/25/2019 CBC w/ auto diff immature grans (abs) 0.0 x10e3 /uL 0.0-0. 1 Not Available [facility] [address] [place], [address], 02/25/2019 06:37:30 02/25/2002/25/2019 CBC w/ auto diff NRBC NURSING PROJECT COORDINATOR Not Available [facility] [address] [place], [address], 02/25/2019 06:37:30 02/25/2002/25/2019 CBC w/ auto diff hematology comments: NURSING PROJECT COORDINATOR Not Available [facility] [address] [facility] [place], [address], 02/25/2019 06:37:30 02/25/2002/25/2019 dhea- sulfa te, serum DHEA-sulfate 34.8 ug/dL 41.2-2 43.7 below low normal Not Available [facility] [address] [facility] [place], [address], 02/25/2019 06:37:30 02/25/2002/25/2019 TSH, ultra -sens itive , serum TSH 2.710 uIU/m L 0.450- 4.500 Not Available [facility] [address] [place], [address], 02/25/2019 06:37:31 02/25/2002/25/2019 prola ctin, serum prolactin 6.3 NG/mL 4.8-23 .3 Not Available [facility] [address] [place], [address], 02/25/2019 06:37:31 02/25/2002/25/2019 testo stero ne, free + total , w/ shbg, serum testosterone , serum 10 NG/dL 8-48 Not Available [facility] [address] [place], [address], 02/26/2019 00:06:39 02/25/2002/25/2019 testo stero ne, free + total , w/ shbg, serum free testosterone (direct) 0.4 pg/mL 0.0-4. 2 Not Available [facility] [address] [place], [address], 02/26/2019 00:06:39 02/25/2002/25/2019 testo stero ne, free + total , w/ shbg, serum sex horm binding glob, serum 71.8 nmol/ L 24.6-1 22.0 Not Available [facility] [address] [place], [address], 02/26/2019 00:06:39 02/25/2002/25/2019 hormo ne panel , serum or plasm a LH 37.9 mIU/m L Adult Femal e: Folli cular phase 2.4 - 12.6 Ovula tion phase 14.0 - 95.6 Lutea l phase 1.0 - 11.4 Postm enopa usal 7.7 - 58.5 Not Available [facility] [address] [place], [address], 02/26/2019 21:06:33 02/25/2002/25/2019 hormo ne panel , serum or plasm a FSH 59.7 mIU/m L Adult Femal e: Folli cular phase 3.5 - 12.5 Ovula tion phase 4.7 - 21.5 Lutea l phase 1.7 - 7.7 Postm enopa usal 25.8 - 134.8 Not Available [facility] ([facility]) [address] [place], [address], 02/26/2019 21:06:33 02/25/2002/26/2019 hormo ne panel , serum or plasm a estrogens, total 87 pg/mL Prepu delmy l <40 Femal e Cycle : 1-10 Days 61 - 394 11-20 Days 122 - 437 21-30 Days 156 - 350 Post- Menop ausal <40 HMG Treat ment for Ovula tion Induc tion: 400 - 800 Not Available [facility] [address] [place], [address], 02/26/2019 21:06:33 02/25/2002/28/2019 17-hy droxy proge stero ne, QN, serum 17-oh progesterone lcms 17 NG/dL Adult Femal e Folli cular 15 - 70 Lutea l 50 - 135 This test was maykel hernández and its perfo rui e gamaliel lagunas stics deter mined by [facility]. It has not been clear ed or appro cornel by the Food and Drug Admin istra tion. Not Available [facility]) [address] [facility], [place], [address], 02/28/2019 14:07:12 02/25/20 19 02/24/2019 Scresunshine savanah, Brief Inter venti on, and Refer ral to Treat ment* In the past 2 weeks, have you felt nervous, anxious, or on edge? Nearly every day Not Available [facility] [address], [address], 02/24/2019 15:07:09 02/25/20 19 02/24/2019 Scresunshine riverg, Brief Inter venti on, and Refer ral to Treat ment* In the past 2 weeks, have you been unable to stop or control worrying? Nearly every day Not Available [facility] [address], [address], 02/24/2019 15:07:09 02/25/20 19 02/24/2019 Scresunshine riverg, Brief Inter venti on, and Refer ral to Treat ment* How many times in the last year have you used drugs/prescr iption meds for non-medical reasons? None Not Available [facility] [address], [address], 02/24/2019 15:07:09 02/25/20 19 02/24/2019 Scresunshine riverg, Brief Inter venti on, and Refer ral to Treat ment* How many times in the past year have you had 4 drinks in 1 day? 0 Not Available [facility] [address], [address], 02/24/2019 15:07:09 02/25/20 19 02/24/2019 Scresunshine pavon, Brief Inter venti on, and Refer ral to Treat ment* Positive or Negative? positi ve Not Available [facility] [address], [address], 02/24/2019 15:07:09 02/25/20 19 02/24/2019 Scresunshine pavon, Brief Inter venti on, and Refer ral to Treat ment* BH Referral? Yes Not Available [facility] [address], [address], 02/24/2019 15:07:09 Result Notes None recorded. Procedures Surgical History Date Name Laterality Status Provider Name and Address Organization Details Recorded Time 8 Date of Last Pap Smear completed Floresitaruma [facility] 02/24/2019 14:45:20 6 Date of Last Mammogram completed [facility] 02/24/2019 14:50:23 section completed Floresitaruma [facility] 02/24/2019 14:57:50 Imaging Results None recorded. Procedure Notes None recorded. Medical Equipment None Reported. Allergies No known drug allergies Medications Name Sig Start Date Stop Date Status Note LastModified by Organization Details LastModified Time meloxicam 15 mg tablet 02/24 completed Not Available Not Available Not Available prednisone 20 mg tablet TAKE 2 TABLETS BY MOUTH DAILY FOR 5 DAYS THEN TAKE 1 TABLET BY MOUTH DAILY FOR 5 DAYS active Not Available Not Available No t Available sertraline 100 mg tablet TAKE 2 TABLETS BY MOUTH EVERY DAY active Not Available Not Available No t Available penicillin V potassium 500 mg tablet 02/24 completed Not Available Not Available Not Available sulfamethox azole 800 mg-trimetho prim 160 mg tablet TAKE 1 TABLET BY MOUTH EVERY 12 HOURS AROUND THE CLOCK FOR 7 DAYS active Not Available Not Available No t Available oxycodone-a cetaminophe n 5 mg-325 mg tablet TAKE 1 TABLET BY MOUTH EVERY DAY active Not Available Not Available No t Available phenazopyri dine 100 mg tablet TAKE 2 TABLETS BY MOUTH THREE TIMES DAILY NEEDED active Not Available Not Available No t Available buspirone 10 mg tablet TAKE 1 TABLET BY MOUTH TWICE DAILY active Not Available Not Available No t Available propranolol 20 mg tablet TAKE 1 TABLET BY MOUTH THREE TIMES DAILY active Not Available Not Available No t Available fluticasone propionate 50 mcg/actuati on nasal spray,suspe nsion SHAKE LIQUID AND USE 1 SPRAY IN EACH NOSTRIL TWICE DAILY active Not Available Not Available No t Available amoxicillin 875 mg-potassiu m clavulanate 125 mg tablet TAKE 1 TABLET BY MOUTH TWICE DAILY FOR 10 DAYS active Not Available Not Available No t Available Ventolin HFA 90 mcg/actuati on aerosol inhaler active Not Available Not Available Not Available buspirone 15 mg tablet TK 1 T PO TID active Not Available Not Available No t Available duloxetine 20 mg capsule,del ayed release TAKE 1 CAPSULE BY MOUTH TWICE DAILY active Not Available Not Available No t Available pregabalin 150 mg capsule TAKE 1 CAPSULE BY MOUTH THREE TIMES DAILY active Not Available Not Available No t Available sumatriptan 4 mg/0.5 mL subcutaneou s pen injector active Not Available Not Available Not Available Latuda 40 mg tablet TAKE 1 TABLET BY MOUTH EVERY DAY active Not Available Not Available No t Available Nuedexta 20 mg-10 mg capsule TAKE 1 CAPSULE BY MOUTH TWICE DAILY DIRECTED active Not Available Not Available No t Available Latuda 20 mg tablet TAKE 1 TABLET BY MOUTH EVERY DAY WITH MEALS active Not Available Not Available No t Available Eliquis 5 mg tablet TAKE 1 TABLET BY MOUTH TWICE DAILY active Not Available Not Available No t Available Breo Ellipta 200 mcg-25 mcg/dose powder for inhalation INHALE 1 PUFF BY MOUTH DAILY active Not Available Not Available No t Available Vitals Date Recorded Body height Body mass index (BMI) Body weight Heart rate Systolic And Diastolic Provider Name and Address Organization Details Last Updated DateTime 02/24/2019 165.1 cm 41.3 kg/m2 261651.3 4 g 68 /min 124/83 mm[Hg] Floresita Norton CMA [facility] 02/24/2019 14:39:59 Social History Question Answer Notes LastModified by Organizat ion Details LastModified Time Tobacco Smoking Status Former Smoker Floresita Norton CMA [facility] 02/24/2019 14:56:02 Concerns About Meeting Basic Needs (food, Housing, Heat, Etc)? No [place] [address] Information not available 02/24/2019 What Was The Date Of Your Most Recent Tobacco Screening? 02/25/2019 Information n ot available 05/20/2019 How Many Years Have You Smoked Tobacco? 20 [email or web address] Information not available 02/24/2019 Sex: Unknown Functional Status None recorded. Mental Status None recorded. Family History Relationship Description Onset Age of this Age Resolved Age Notes LastModified by Organization Details LastModified Time Mother Cerebrovascu lar accident [place] [address] Not available 10/2018 14:54:28 Mother Myocardial infarction Not available 02/24 14:55:09 Son Diabetes mellitus [email or web address] Not available 2018 14:55:52 Medical History Condition Response Hospitalizations Y Anxiety Disorder Y Vision or Eye Problems Y Headaches Y Hypertension Y Back Injury Y Gynecological History Statement/Question Response Abnormal Pap N Date of Last Mammogram 09/30/2016 Flow Heavy Date of LMP 12/27/2018 STIs/STDs N HPV Vaccine N Duration of Flow (days) Current Control Method None Age at Menarche 14 Age at First Child 23 Sexually Active? N Date of Last Pap Smear 09/30/2018 Obstetrics History GPAL:G 3 P 2 0 1 2 Type Value Full Term 2 Spontaneous 1 Living 2 Total 3 Past Encounters Encounter ID Performer Location Encounter Start Date Encounter Closed Date Diagnosis/Indication Diagnosis SNOMED-CT Code Diagnosis ICD10 Code Diagnosis Note [id number] Jocelyne Solis MD [facility] [address] [address] 02/24/2019 14:17:58 02/24/2019 16:04:30 Body mass index 30+ - obesity 096159491 Z68.39 Abnormal u terine bleeding 9466812077 9100 N93.9 49 yo presents with abnormal bleeding described has heavy and prolonged. States having increased PMS symptoms and feels evil with the bleeding.mickey RUSHINGB-Oneed to r/o AUB-M labs todaywill plan to repeat EMB with u/s @ next visit history of ablation 2013 for heavy bleeding; started depo after ablation d/t continued bleedingPC P took patient off depo in Jul 2018 and bleeding started Dec 2018-state s had EMB and labs before first ablation with Dr.Pancham ukhi-no results, pt states they were normal surgical history: ablation 2013, c/section for complete previa 1999 with BTL medical history: bipolar, migraines, CHTN, vaginal delivery X 2 BMI 41 last pap 09/2018 per patient-no results in chart Desires surgical management ; will schedule with MD for next appointmen t to discuss treatment options Health Concerns Section Related Observation LastModified by Organization Detai ls LastModified Time None Recorded Concern Status LastModified by Organization Details LastModified Time None Recorded Advance Directives Directive None Recorded Payers Insurance Date Sequence Insurance Name Policy Number Policy Zavala Covered Member ID Zavala Member ID Guarantor Name 06/05/2021 1 [place] [facility] Debora Mickey Katherine [id number] Debora Murphy 06/08/2021 2 [place] WHEN MEDICARE OR MEDICARE REPLACEMENT PRIMARY) Debora Murphy [id number] Debora Murphy 02/15/2019 3 *SELF PAY* wojciech Katherine Notes Date Note Type Note Provider Name a ny Address Organization Details Recorded Time 02/24/2019 text/html pt arrives for abn bleeding Alyson Kelly CNM [address] [place] [address], [phone], [facility] 02/25/2019 10:03:49 OBGyn Episode Ob Episode Information Episode Created Date Number of Fetuses Patient Bloodtype Patient rh Status Prepregnancy Weight lbs Domestic Partner Domestic Partner Phone Father Name Furnace Operator And Tender Status 02/25/20 19 1 CLOSED Fetus Data First Name Last Name Admitted to NICU Weight (g) Sex Living Outcome Pediatric Complications Fetus ID Race Codes Race Delivery Type , Spontane ous 5567 Ady Calculation Initial Ady Date Initial Exam Date Initial Exam Provider Initial Ultrasound Date Last Menstrual Period Date Ultra Sound Weeks Gestation 0 Eighteen To Twenty Week Ady Update Ultra Sound Date Fundal Height At Umbil Quickening Date Ultra Sound Latest Weeks Gestation Final Ady Confirmed By Final Ady Confirmed Date Final Ady Date Ultra Sound Latest Days Gestation 0 0 Menstrual History Last Menstrual Date Menses Monthly On Bcp Conception Prior Menses Frequency Hcg Plus Date Menarche Onset Age Delivery Information Delivery Date Delivery Type Labor Anesthesia Weeks Gestation Incision Type Labor Labor Length Hrs Delivered By Post Complications Tubal Sterilization Discharge Date Comments 7 spont AB Discharge Information Feeding Method Contraceptive Method Maternal HG B and HCT Levels Ob Episode Information Episode Created Date Number of Fetuses Patient Bloodtype Patient rh Status Prepregnancy Weight lbs Domestic Partner Domestic Partner Phone Father Name Furnace Operator And Tender Status 02/25/20 19 1 CLOSED Fetus Data First Name Last Name Admitted to NICU Weight (g) Sex Living Outcome Pediatric Complications Fetus ID Race Codes Race Delivery Type 2778.25 1 M Prematur e 5568 Ady Calculation Initial Ady Date Initial Exam Date Initial Exam Provider Initial Ultrasound Date Last Menstrual Period Date Ultra Sound Weeks Gestation 0 Eighteen To Twenty Week Ady Update Ultra Sound Date Fundal Height At Umbil Quickening Date Ultra Sound Latest Weeks Gestation Final Ady Confirmed By Final Ady Confirmed Date Final Ady Date Ultra Sound Latest Days Gestation 0 0 Menstrual History Last Menstrual Date Menses Monthly On Bcp Conception Prior Menses Frequency Hcg Plus Date Menarche Onset Age Delivery Information Delivery Date Delivery Type Labor Anesthesia Weeks Gestation Incision Type Labor Labor Length Hrs Delivered By Post Complications Tubal Sterilization Discharge Date Comments 0 None 32 STL Discharge Information Feeding Method Contraceptive Method Maternal HG B and HCT Levels Ob Episode Information Episode Created Date Number of Fetuses Patient Bloodtype Patient rh Status Prepregnancy Weight lbs Domestic Partner Domestic Partner Phone Father Name Furnace Operator And Tender Status 02/25/20 1 CLOSED Fetus Data First Name Last Name Admitted to NICU Weight (g) Sex Living Outcome Pediatric Complications Fetus ID Race Codes Race Delivery Type 3883.65 4704 M Full Term 5566 Ady Calculation Initial Ady Date Initial Exam Date Initial Exam Provider Initial Ultrasound Date Last Menstrual Period Date Ultra Sound Weeks Gestation 0 Eighteen To Twenty Week Ady Update Ultra Sound Date Fundal Height At Umbil Quickening Date Ultra Sound Latest Weeks Gestation Final Ady Confirmed By Final Ady Confirmed Date Final Ady Date Ultra Sound Latest Days Gestation 0 0 Menstrual History Last Menstrual Date Menses Monthly On Bcp Conception Prior Menses Frequency Hcg Plus Date Menarche Onset Age Delivery Information Delivery Date Delivery Type Labor Anesthesia Weeks Gestation Incision Type Labor Labor Length Hrs Delivered By Post Complications Tubal Sterilization Discharge Date Comments [address] Boss s Discharge Information Feeding Method Contraceptive Method Maternal HG B and HCT Levels
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
== END 2025-05-13 23:43 | disposition home or self-care (01) ==
PROVIDERS: Emergency Provider Student in an Organized Health Care Education/Training Program
DX: R29.6 Repeated falls (principal); Z86.718 Personal history of other venous thrombosis and embolism; F11.90 Opioid use, unspecified, uncomplicated; Z79.01 Long term (current) use of anticoagulants; M89.9 Disorder of bone, unspecified
CPT/HCPCS: 36415; 70450; 72125; 80053; 83735; 85025; 99284